=== PATIENT | male | born 2000 | race Caucasian/White ===

== ENCOUNTER 2023-02-02 23:35 | Emergency (ER) | payer SELFPAY ==
[~2023-02-02] VITALS: Ht 180.3 cm; Wt 63.5 kg
[~2023-02-02 23:35] MED LIST: ALBU0.632 IH; FLUT16SP22 NS; INHALER; LRT10T PO; PRD20T PO
[2023-02-02 23:50] VITALS: BP 128/80
[2023-02-02] MEDS ORDERED: RT-ALBUINH INH (23:57)
[2023-02-02] MEDS ORDERED: PRD50T PO (23:57)
--- NOTE | 2023-02-02 23:59 | ED Cough/URI ---
General Chief Complaint: Respiratory Problems Stated Complaint: SOB,ASTHMA Nursing Triage Note: PT AMB TO [facility] WITH CC OF SOB, COUGHING, AND RUNNY NOSE. PT STATES THAT SOB STARTED AN HOUR AGO. Source: patient Exam Limitations: no limitations History of Present Illness Date Seen by Provider: Feb 02, 2023 Time Seen by Provider: 23:48 Initial Comments 22-year-old male presents the emergency department today for shortness of breath. He believes is related to his asthma. He tried to use his rescue inhaler at home but it was out. No fevers or chills. He did have a slight cough and upper respiratory congestion yesterday. All other systems reviewed and negative except documented per HPI. Voice recognition software was used to help create this chart Allergies and Home Medications Allergies Coded Allergies: No Known Drug Allergies (Unverified , 12/26/11) Patient Home Medication List Home Medication List Reviewed: Yes Albuterol Sulfate (Albuterol Sulfate) 0.63 Mg/3 Ml Vial.neb, 0.63 MG IH PRN Prescribed by: JARROD MONGE on 12/26/11 0924 Fluticasone Propionate (Flonase Nasal [place]) 16 Gm Naspr, 16 GM NS, (Reported) Entered as Reported by: NARCISO ACHARYA on 12/26/11 08 Loratadine (Claritin) 10 Mg Tab, 5 MG PO DAILY, (Reported) Entered as Reported by: NARCISO ACHARYA on 12/26/11807 Prednisone (Prednisone) 20 Mg Tab, 20 MG PO UD Prescribed by: JARROD MONGE on 12/26/11 0921 [Inhaler] , (Reported) Entered as Reported by: NARCISO ACHARYA on 12/26/11807 Review of Systems Review of Systems Constitutional: see HPI Past Zrudbvw-Lgvkek-Nbtyvp Hx Patient Social History Tobacco Use?: No Use of E-Cig and/or Vaping Khoa: Former User Substance use?: No Alcohol Use?: No Past Medical History Surgery/Hospitalization HX: ASTHMA Physical Exam Vital Signs - First Documented 02/02/23 23:50 Temp 36.7 Pulse 91 B/P (MAP) 128/80 (96) Pulse Ox 99 O2 Delivery Room Air Capillary Refill : Height: '" Weight: lbs. oz. kg; 19.00 BMI Method:Stated General Appearance: WD/WN, no apparent distress Neck: non-tender, supple Respiratory: chest non-tender, lungs clear, normal breath sounds, no respiratory distress, no accessory muscle use Cardiovascular: regular rate, rhythm, no murmur Gastrointestinal: normal bowel sounds, non tender, soft Extremities: normal range of motion, non-tender, normal inspection Neurologic/Psychiatric: alert, oriented x 3 Skin: normal color, warm/dry Progress/Results/Core Measures Suspected Sepsis SIRS Temperature: Pulse: 91 Respiratory Rate: Blood Pressure 128 /80 Mean: 96 Results/Orders Vital Signs/I&O 02/02/23 23:50 Temp 36.7 Pulse 91 B/P (MAP) 128/80 (96) Pulse Ox 99 O2 Delivery Room Air Capillary Refill : Blood Pressure Mean: 96 Departure Communication (Admissions) Patient is hemodynamically stable with no respiratory distress. Oxygen saturation is 99 to 100% on room air. No retractions. There is no wheezing on exam of the time of my evaluation. He is afebrile and nontoxic. His lung sounds are clear bilaterally with no evidence for pneumonia. No indication for chest x-ray at this time. We will go ahead and give him prednisone and refill his rescue inhaler. Is likely that there was at least some albuterol remaining in his rescue inhaler as his symptoms pretty much abated by the time he got here however inhaler is likely mostly empty. Impression Primary Impression: Asthma exacerbation Qualified Codes: J45.21 - Mild intermittent asthma with (acute) exacerbation Disposition: 01 HOME, SELF-CARE Condition: Stable Departure-Patient Inst. Referrals: NO,LOCAL PHYSICIAN (PCP/Family) Primary Care Physician Patient Instructions: Asthma, Adult ED Add. Discharge Instructions: You are seen in the emergency department today for a breath. This is likely related to asthma. Please take the steroid medication as prescribed until its gone. Use the inhaler as needed. Return to the emergency department for any severe concerns. All discharge instructions reviewed with patient and/or family. Voiced understanding. Scripts Albuterol Sulfate (VENTOLIN HFA) 1 Puff Puff 2 PUFF INH Q4H for Wheezing for 30 Days, #1 EA 2 Refills 1 PUFF = 90 MCG Prov: BRIAN GOINS DO 02/02/23 Prednisone (Prednisone) 50 Mg Tab 50 MG PO DAILY for 3 Days, #3 TAB Prov: BRIAN GOINS DO 02/02/23 BRIAN GOINS DO Feb 02, 2023 23:58
[2023-02-03] MEDS ORDERED: predniSONE 20 MG TABLET PO ONE
[2023-02-03] MEDS ORDERED: RT-ALBUTEROL HFA 8.5 GM INHALER IH PRN
== END 2023-02-03 00:10 | disposition home or self-care (01) ==
LOC: EDUNIT# 23:35 → ER 23:38
DX: J45.901 Unspecified asthma with (acute) exacerbation (principal); Z87.891 Personal history of nicotine dependence